=== PATIENT | male | born 1980 | race African-American/Black ===

== ENCOUNTER 2023-02-03 22:33 | Emergency (ER) | payer SELFPAY ==
[~2023-02-03] VITALS: Ht 182.9 cm; Wt 97.0 kg
[2023-02-03] MEDS ORDERED: KETAMINE HCL 50 MG/ML 10ML IV ONE ×2 (23:30→23:45)
[2023-02-03] MEDS ORDERED: MORPHINE SULFATE 10 MG/ML CPJ IV ONE (23:30)
[2023-02-03] MEDS ORDERED: SODIUM CHLORIDE 0.9% 1,000 ML IV ONE (23:30)
[2023-02-03] MEDS ORDERED: ONDANSETRON HCL 4MG/2ML INJ IV ONE ×2 (23:30→23:45)
[2023-02-03] MEDS ORDERED: MIDAZOLAM HCL 2 MG/2 ML VIAL ONE (23:42)
[2023-02-03] MEDS ORDERED: MIDAZOLAM HCL 2 MG/2 ML VIAL IV ONE (23:45)
[2023-02-03 23:50] VITALS: O2SAT 100
[2023-02-04 00:30] LABS: BASOPHILS % 0.7 % (0.0-2.0); EOSINOPHILS % 2.1 % (0.0-5.0); HEMOGLOBIN. 14.1 g/dL (14.0-18.0); LYMPHOCYTES % 40.8 % (20.0-50.0); MEAN CORPUSCULAR HEMOGLOBIN 33.1 pg (28.0-32.0); MEAN CORPUSCULAR VOLUME 98.6 fL (80.0-94.0); MEAN PLATELET VOLUME 9.3 fl (7.4-10.4); MONOCYTES % 8.1 % (2.0-8.0); NEUTROPHILS % 48.3 % (40.0-76.0); PLATELET 294 x1000/uL (130-400); RED BLOOD CELL COUNT 4.26 mill/uL (4.7-6.1); RED CELL DISTRIBUTION WIDTH 13.4 % (11.6-14.6)
[2023-02-04 00:44] LABS: CHLORIDE 107 mEq/L (98-107)
[2023-02-04 06:00] VITALS: BP 132/73; PULSE 61; RESP 13; TEMP 98.7
[2023-02-04] MEDS ORDERED: HYDR-4001 MT (06:25)
[2023-02-04] MEDS ORDERED: IOHEXOL-350 100 ML BOTTLE ONE (06:30)
== END 2023-02-04 07:30 | disposition home or self-care (01) ==
LOC: ER 22:33
DX: S83.004A Unspecified dislocation of right patella, initial encounter (principal); X58.XXXA Exposure to other specified factors, initial encounter; Y93.89 Activity, other specified; Y92.89 Other specified places as the place of occurrence of the external cause; Y99.8 Other external cause status
CPT/HCPCS: 80048; 85025; 36415; 73560; 27550; 96374; 99152; 99291; 73706; 96361; 96375; J3490; J2250; J2405; J2270; J7030; Z7610 ×2; Q9967; L1830